=== PATIENT | male | born 1940 | race Caucasian/White ===

== ENCOUNTER → 2017-05-26 | Outpatient (CLI) | payer MEDICARE, OTHER ==
[~2017-05-26] MED LIST: ACLI400A2 INH; ALPR0.25 PO; ASPI-515 PO; AZIT500T PO; BENA5TAB2 PO; BUDE10.2 IH; CEFD300C37 PO; CIPR500T3 PO; GLIM4TAB PO; IPRA3AMP NPPB; NICO-486 TD; OXYC-293 PO; PHEN-583 PO; PRED10TA PO; gabapentin PO; will bring list
[2017-05-26 16:55] LABS: MICROSCOPIC NOT IND
[2017-05-26 16:57] LABS: CULTURE INDICATED? NO
[2017-05-26 16:57] LABS: BASOPHILS # (AUTO) 0.05 x10^3/uL (0-0.1); BASOPHILS % (AUTO) 0 % (0-1); EOSINOPHILS # (AUTO) 0.36 x10^3/uL (0-0.4); EOSINOPHILS % (AUTO) 2 % (1-7); LYMPHOCYTES # (AUTO) 3.22 x10^3/uL (1-3.4); LYMPHOCYTES % (AUTO) 19 % (22-44); MD NO; MEAN CORPUSCULAR HEMOGLOBIN 29.3 pg (27.5-34.5); MEAN CORPUSCULAR HGB CONC 32.6 g/dL (33.2-36.2); MEAN CORPUSCULAR VOLUME 89.8 fL (81-97); MEAN PLATELET VOLUME 10.2 fL (7.4-10.4); MONOCYTES # (AUTO) 1.17 x10^3/uL (0.2-0.8); MONOCYTES % (AUTO) 7 % (2-9); NEUTROPHILS # (AUTO) 12.38 x10^3/uL (1.8-6.8); NEUTROPHILS % (AUTO) 72 % (42-75); PLATELET COUNT 152 x10^3/uL (130-400); RED BLOOD COUNT 5.44 x10^6/uL (4.38-5.82); RED CELL DISTRIBUTION WIDTH 17.1 % (9.4-14.8)
[2017-05-26 16:58] LABS: ALANINE AMINOTRANSFERASE 31 U/L (12-78); ALBUMIN 3.7 g/dL (3.4-5.0); ANION GAP 6 mmol/L (5-15); CALCIUM 8.9 mg/dL (8.5-10.1); CHLORIDE 103 mmol/L (98-107); CREATININE 1.11 mg/dL (0.7-1.3)
[2017-05-26 17:00] LABS: ALKALINE PHOSPHATASE 100 U/L (45-117); BILIRUBIN,TOTAL 0.6 mg/dL (0.2-1.0); TOTAL PROTEIN 7.2 g/dL (6.4-8.2)
[2017-05-26 18:25] LABS: INTERNATIONAL NORMALIZED RATIO 1.05 (0.93-1.1); PROTHROMBIN TIME 10.8 Seconds (9.6-11.5)
== END ==
LOC: STAR 15:50
PROVIDERS: ATTEND Neurological Surgery
DX: Z01.818 Encounter for other preprocedural examination (principal); R94.31 Abnormal electrocardiogram [ECG] [EKG]; M48.061 Spinal stenosis, lumbar region without neurogenic claudication; I44.7 Left bundle-branch block, unspecified
CPT/HCPCS: 36415; 71046; 80053; 81003; 85025; 85610; 85730; 93005

== ENCOUNTER → 2017-05-27 | Outpatient (CLI) | payer MEDICARE, OTHER ==
[~2017-05-27] MED LIST changes: +OMNIPAQUE 350 MG/ML, 100ML BOTTLE ONE
== END | disposition home or self-care (01) ==
LOC: CFH 14:48
PROVIDERS: ATTEND Registered Nurse Registered Nurse First Assistant
DX: Z01.818 Encounter for other preprocedural examination (principal); M51.36 Other intervertebral disc degeneration, lumbar region; I71.9 Aortic aneurysm of unspecified site, without rupture; R91.8 Other nonspecific abnormal finding of lung field; N40.0 Benign prostatic hyperplasia without lower urinary tract symptoms; D43.4 Neoplasm of uncertain behavior of spinal cord
CPT/HCPCS: 71260; 72110; 74177; Q9967

== ENCOUNTER 2017-06-02 06:36 | Day surgery (SDC) | payer MEDICARE, OTHER ==
[~2017-06-02] VITALS: Ht 185.4 cm; Wt 89.4 kg
[~2017-06-02 06:36] MED LIST changes: -OMNIPAQUE 350 MG/ML, 100ML BOTTLE ONE
[2017-06-02 07:27] VITALS: BP 132/78
[2017-06-02] MEDS ORDERED: ALPR-475 PO (07:31)
[2017-06-02] MEDS ORDERED: SODIUM CHLORIDE 0.9% 1,000 ML IV SCH (07:31)
[2017-06-02] MEDS ORDERED: ATOR-2 PO (07:31)
[2017-06-02] MEDS ORDERED: VARE1TAB20 PO (07:31)
[2017-06-02] MEDS ORDERED: HYDR-882 PO (07:31)
[2017-06-02] MEDS ORDERED: MIDAZOLAM 1 MG/ML, 5ML ONE (08:08)
[2017-06-02] MEDS ORDERED: FENTANYL PF 100 MCG/2ML ONE (08:08)
[2017-06-02] MEDS ORDERED: FLUMAZENIL 0.1 MG/1 ML, 5ML ONE (08:09)
[2017-06-02] MEDS ORDERED: NALOXONE 1 MG/ML, 2ML ONE (08:09)
== END 2017-06-02 13:20 ==
LOC: OUT 06:36 → EDSTATUS 07:30 → OUT 13:20
PROVIDERS: ATTEND Physician Assistant
DX: J98.4 Other disorders of lung (principal); I10 Essential (primary) hypertension; J44.9 Chronic obstructive pulmonary disease, unspecified; Z79.82 Long term (current) use of aspirin
CPT/HCPCS: 32405; 71045; 77012; 88305; 88333; 99156; 99157; J2250; J3010; J7030; 88172; 88173; J2310

== ENCOUNTER → 2017-06-14 | Outpatient (CLI) | payer MEDICARE, OTHER ==
[~2017-06-14] MED LIST changes: +ALPR-475 PO; +ATOR-2 PO; +HYDR-882 PO; +VARE1TAB20 PO
== END | disposition home or self-care (01) ==
LOC: PETCFH 08:34
PROVIDERS: ATTEND Internal Medicine
DX: C79.51 Secondary malignant neoplasm of bone (principal); C34.32 Malignant neoplasm of lower lobe, left bronchus or lung
CPT/HCPCS: 78815; A9552

== ENCOUNTER → 2017-06-14 | Outpatient (CLI) | payer MEDICARE, OTHER ==
[~2017-06-14] MED LIST changes: +GADOBUTROL 7.5 MMOL/7.5 ML PFS ONE
== END | disposition home or self-care (01) ==
LOC: RAD 08:37
PROVIDERS: ATTEND Internal Medicine
DX: D17.0 Benign lipomatous neoplasm of skin and subcutaneous tissue of head, face and neck (principal); J32.1 Chronic frontal sinusitis; C34.32 Malignant neoplasm of lower lobe, left bronchus or lung
CPT/HCPCS: 70553; A9585

== ENCOUNTER 2017-06-21 12:47 | Day surgery (SDC) | payer MEDICARE, OTHER ==
[~2017-06-21] VITALS: Ht 185.4 cm; Wt 86.0 kg
[~2017-06-21 12:47] MED LIST changes: -GADOBUTROL 7.5 MMOL/7.5 ML PFS ONE
[2017-06-21 14:13] VITALS: BP 156/92
[2017-06-21] MEDS ORDERED: SODIUM CHLORIDE 0.9% 1,000 ML IV SCH (14:15)
[2017-06-21] MEDS ORDERED: LIDOCAINE-MPF 1%, 5ML ONE (14:44)
[2017-06-21] MEDS ORDERED: MIDAZOLAM 1 MG/ML, 5ML ONE ×2 (14:47→14:48)
[2017-06-21] MEDS ORDERED: FENTANYL PF 100 MCG/2ML ONE (14:47)
[2017-06-21] MEDS ORDERED: FLUMAZENIL 0.1 MG/1 ML, 5ML ONE (14:48)
[2017-06-21] MEDS ORDERED: NALOXONE 1 MG/ML, 2ML ONE (14:48)
== END 2017-06-21 17:00 ==
LOC: OUT 12:47
PROVIDERS: ATTEND Radiology Radiation Oncology
DX: C79.51 Secondary malignant neoplasm of bone (principal); J44.9 Chronic obstructive pulmonary disease, unspecified; F17.210 Nicotine dependence, cigarettes, uncomplicated; E78.5 Hyperlipidemia, unspecified; I10 Essential (primary) hypertension; F41.9 Anxiety disorder, unspecified; Z98.890 Other specified postprocedural states; Z85.118 Personal history of other malignant neoplasm of bronchus and lung
CPT/HCPCS: 20225; 77012; 88307; 88311; 88341; 88342; 99156; J2250; J3010; J7030; 99157; G0461; J2310

== ENCOUNTER → 2017-07-21 | Outpatient (CLI) | payer MEDICARE, OTHER | END | disposition home or self-care (01) | LOC: ROC 08:55 | PROVIDERS: ATTEND Radiology Radiation Oncology | DX: C34.32 Malignant neoplasm of lower lobe, left bronchus or lung (principal); C79.51 Secondary malignant neoplasm of bone | CPT/HCPCS: G0463 ==

== ENCOUNTER → 2017-08-05 | Outpatient (CLI) | payer MEDICARE, OTHER ==
[~2017-08-05] MED LIST changes: +GADOBUTROL 7.5 MMOL/7.5 ML PFS ONE
[2017-08-05 12:36] LABS: CREATININE 1.06 mg/dL (0.7-1.3)
== END | disposition home or self-care (01) ==
LOC: RAD 12:01
PROVIDERS: ATTEND Radiology Radiation Oncology
DX: C79.51 Secondary malignant neoplasm of bone (principal); C34.90 Malignant neoplasm of unspecified part of unspecified bronchus or lung; M48.02 Spinal stenosis, cervical region
CPT/HCPCS: 36415; 72156; 82565; A9585